=== PATIENT | female | born 1985 | race Caucasian/White ===

== ENCOUNTER 2017-03-23 17:53 | Observation (INO) ==
[2017-03-23 18:13] VITALS: TEMP 98.5
--- OUTSIDE RECORDS SUMMARY | 2017-03-23 18:25 | External Medical Summary | Referral Summary ---
:1985 [facility] Address [address] [place] [address] Care Team Providers Name Role Phone Melchor Ibarra Primary Care Physician Encounter VC Date(s): 03/14/15 - 03/14/15 [facility] MICHELLE Modi, [facility], OBGYN [address] [address] [place] Discharge Disposition: 01-Home or Self Care Attending Physician: Ilya Hurley MD Admitting Physician: Ilya Hurley MD Vital Signs Most recent to oldest [Reference Range]: 1 Blood Pressure [90-140/60-90 mmHg] 102/74 mmHg (03/14/15 9:36 AM) Problem List Condition Effective Dates Status Health Status Informant Tobacco user(Confirmed) Active patient Allergies, Adverse Reactions, Alerts No Known Allergies Medications Lipitor 10 mg oral tablet 10 mg 1 tabs, Oral, Daily, # 30 tabs, 4 Refill(s), Pharmacy: [facility], 1 tabs Oral Daily Start Date: 08/17/15 Status: OrderedOrtho Tri-Cyclen Lo oral tablet 1 tabs, Oral, Daily, # 28 tabs, 11 Refill(s), Pharmacy: [facility] Start Date: 03/14/15 Status: OrderedProbiotic Formula oral capsule 1 caps, Oral, Daily, 0 Refill(s) Start Date: 08/17/15 Status: OrderedRestora oral capsule See Instructions, 1 caps Oral Daily,Instr:DISPENSE, # 30 caps, eRx: [facility], 1 caps Oral Daily,Instr:DISPENSE Start Date: 08/20/15 Status: OrderedRestora oral capsule 1 caps, Oral, Daily, DISPENSE, # 30 caps, 0 Refill(s), Pharmacy: [facility] Start Date: 03/14/15 Status: Ordered Results No data available for this section Immunizations No data available for this section Procedures No data available for this section Social History Social History Type Response Smoking Status Current every day smoker; Type: Cigarettes; Tobacco use per day : 1 Pack; Number of years: 14 Assessment and Plan Extracted from: Title: Ambulatory Patient Education Author: Ilya Hurley MD Date: Family Medicine Preventive Care for Adults A healthy lifestyle and preventive care can promote health and wellness. Preventive health guidelines for women include the following mclean practices. A routine yearly physical is a good way to check with your health care provider about your health and preventive screening. It is a chance to share any concerns and updates on your health and to receive a thorough exam. Visit your dentist for a routine exam and preventive care every 6 months. [place] your teeth twice a day and floss once a day. Good oral hygiene prevents tooth decay and gum disease. The frequency of eye exams is based on your age, health, family medical history, use of contact lenses, and other factors. Follow your health care provider's recommendations for frequency of eye exams. Eat a healthy diet. Foods like vegetables, fruits, whole grains, low-fat dairy products, and lean protein foods contain the nutrients you need without too many calories. Decrease your intake of karlie ds high in solid fats, added sugars, and salt. Eat the right amount of calories for you.Get information about a proper diet from your health care provider, if necessary. Regular physical exercise is one of the most important things you can do for your health. Most adults should get at least 150 minutes of moderate- intensity exercise (any activity that increases you r heart rate and causes you to sweat) each week. In addition, most adults need muscle-strengthening exercises on 2 or more days a week. Maintain a healthy weight. The body mass index (BMI) is a screening tool to identify possible weight problems. It provides an estimate of body fat based on height and weight. Your health care provi dieter can find your BMI and can help you achieve or maintain a healthy weight. For adults 20 years and older: A BMI below 18.5 is considered underweight. A BMI of 18.5 to 24.9 is normal. A BMI of 25 to 29.9 is considered overweight. A BMI of 30 and above is considered obese. Maintain normal blood lipids and cholesterol levels by exercising and minimizing your intake of saturated fat. Eat a balanced diet with plenty of fruit and vegetables. Blood tests for lipids and ch olesterol should begin at age 20 and be repeated every 5 years. If your lipid or cholesterol levels are high, you are over 50, or you are at high risk for heart disease, you may need your cholesterol le vels checked more frequently.Ongoing high lipid and cholesterol levels should be treated with medicines if diet and exercise are not working. If you smoke, find out from your health care provider how to quit. If you do not use tobacco, do not start. Lung cancer screening is recommended for adults aged 5580 years who are at high risk for developing lung cancer because of a history of smoking. A yearly low-dose CT scan of the lungs is recomme nded for people who have at least a 05-lwoa-[id number] history of smoking and are a current smoker or have quit within the past 15 years. A pack year of smoking is smoking an average of 1 pack of cigarettes a day for 1 year (for example: 1 pack a day for 30 years or 2 packs a day for 15 years). Yearly screening should continue until the smoker has stopped smoking for at least 15 years. Yearly screening shou ld be stopped for people who develop a health problem that would prevent them from having lung cancer treatment. If you are , do not drink alcohol. If you are , be very cautious about drinking alcohol. If you are not and choose to drink alcohol, do not have more than 1 drink per day. One drink is considered to be 12 ounces (355 mL) of beer, 5 ounces (148 mL ) of wine, or 1.5 ounces (44 mL) of liquor. Avoid use of street drugs. Do not share needles with anyone. Ask for help if you need support or instructions about stopping the use of drugs. High blood pressure causes heart disease and increases the risk of stroke. Your blood pressure should be checked at least every 1 to 2 years. Ongoing high blood pressure should be treated with medicines if weight loss and exercise do not work. If you are 5579 years old, ask your health care provider if you should take aspirin to prevent strokes. Diabetes screening involves taking a blood sample to check your fasting blood sugar level. This should be done once every 3 years, after age 45, if you are within normal weight and without risk fac tors for diabetes. Testing should be considered at a younger age or be carried out more frequently if you are overweight and have at least 1 risk factor for diabetes. Breast cancer screening is essential preventive care for women. You should practice "breast self-awareness." This means understanding the normal appearance and feel of your breasts and may include breast self-examination. Any changes detected, no matter how small, should be reported to a health care provider. Women in their 20s and 30s should have a clinical breast exam (CBE) by a health care pro vider as part of a regular health exam every 1 to 3 years. After age 40, women should have a CBE every year. Starting at age 40, women should consider having a mammogram (breast X-ray test) every year. Women who have a family history of breast cancer should talk to their health care provider about genetic screening. Women at a high risk of breast cancer should talk to their health care providers about having an MRI and a mammogram every year. Breast cancer gene (BRCA)-related cancer risk assessment is recommended for women who have family members with BRCA-related cancers. BRCA-related cancers include breast, ovarian, tubal, and periton eal cancers. Having family members with these cancers may be associated with an increased risk for harmful changes (mutations) in the breast cancer genes BRCA1 and BRCA2. Results of the assessment will determine the need for genetic counseling and BRCA1 and BRCA2 testing. Routine pelvic exams to screen for cancer are no longer recommended for non women who are considered low risk for cancer of the pelvic organs ( ovaries, uterus, and vagina) and who do not ashton ve symptoms. Ask your health care provider if a screening pelvic exam is right for you. If you have had past treatment for cervical cancer or a condition that could lead to cancer, you need Pap tests and screening for cancer for at least 20 years after your treatment. If Pap tests hav e been discontinued, your risk factors (such as having a new sexual partner) need to be reassessed to determine if screening should be resumed. Some women have medical problems that increase the chance of getting cervical cancer. In these cases, your health care provider may recommend more frequent screening and Pap tests. The HPV test is an additional test that may be used for cervical cancer screening. The HPV test looks for the virus that can cause the cell changes on the cervix. The cells collected during the Pap test can be tested for HPV. The HPV test could be used to screen women aged 30 years and older, and should be used in women of any age who have unclear Pap test results. After the age of 30, women shou ld have HPV testing at the same frequency as a Pap test. Colorectal cancer can be detected and often prevented. Most routine colorectal cancer screening begins at the age of 50 years and continues through age 75 years. However, your health care provider may recommend screening at an earlier age if you have risk factors for colon cancer. On a yearly basis, your health care provider may provide home test kits to check for hidden blood in the stool. Use o f a small camera at the end of a tube, to directly examine the colon ( sigmoidoscopy or colonoscopy), can detect the earliest forms of colorectal cancer. Talk to your health care provider about this at a ge 50, when routine screening begins. Direct exam of the colon should be repeated every 510 years through age 75 years, unless early forms of pre- cancerous polyps or small growths are found. People who are at an increased risk for hepatitis B should be screened for this virus. You are considered at high risk for hepatitis B if: You were born in a country where hepatitis B occurs often. Talk with your health care provider about which countries are considered high risk. Your parents were born in a high-risk country and you have not received a shot to protect against hepatitis B (hepatitis B vaccine). You have HIV or AIDS. You use needles to inject street drugs. You live with, or have sex with, someone who has hepatitis B. You get hemodialysis treatment. You take certain medicines for conditions like cancer, organ transplantation, and autoimmune conditions. Hepatitis C blood testing is recommended for all people born from 1945 through 1965 and any individual with known risks for hepatitis C. Practice safe sex. Use condoms and avoid high-risk sexual practices to reduce the spread of sexually transmitted infections (STIs). STIs include gonorrhea, chlamydia, syphilis, trichomonas, herpes, HPV, and human immunodeficiency virus (HIV). Herpes, HIV, and HPV are viral illnesses that have no cure. They can result in disability, cancer, and . You should be screened for sexually transmitted illnesses (STIs) including gonorrhea and chlamydia if: You are sexually active and are younger than 24 years. You are older than 24 years and your health care provider tells you that you are at risk for this type of infection. Your sexual activity has changed since you were last screened and you are at an increased risk for chlamydia or gonorrhea. Ask your health care provider if you are at risk. If you are at risk of being infected with HIV, it is recommended that you take a prescription medicine daily to prevent HIV infection. This is called preexposure prophylaxis (PrEP). You are considered at risk if: You are a heterosexual woman, are sexually active, and are at increased risk for HIV infection. You take drugs by injection. You are sexually active with a partner who has HIV. Talk with your health care provider about whether you are at high risk of being infected with HIV. If you choose to begin PrEP, you should first be tested for HIV. You should then be tested every 3 months for as long as you are taking PrEP. Osteoporosis is a disease in which the bones lose minerals and strength with aging. This can result in serious bone fractures or breaks. The risk of osteoporosis can be identified using a bone dens ity scan. Women ages 65 years and over and women at risk for fractures or osteoporosis should discuss screening with their health care providers. Ask your health care provider whether you should take a calcium supplement or vitamin D to reduce the rate of osteoporosis. Menopause can be associated with physical symptoms and risks. Hormone replacement therapy is available to decrease symptoms and risks. You should talk to your health care provider about whether hormone replacement therapy is right for you. Use sunscreen. Apply sunscreen liberally and repeatedly throughout the day. You should seek shade when your shadow is shorter than you. Protect yourself by wearing long sleeves, pants, a wide-brimm ed hat, and sunglasses year round, whenever you are outdoors. Once a month, do a whole body skin exam, using a mirror to look at the skin on your back. Tell your health care provider of new moles, moles that have irregular borders, moles that are larger than a pencil eraser, or moles that have changed in shape or color. Stay current with required vaccines (immunizations). Influenza vaccine. All adults should be immunized every year. Tetanus, diphtheria, and acellular pertussis (Td, Tdap) vaccine. women should receive 1 dose of Tdap vaccine during each . The dose should be obtained regardless of the length of time since the last dose. Immunization is preferred during the [id number] week of gestation. An adult who has not previously received Tdap or who does not know her vaccine status should receive 1 dose of Tdap. This initial dose should be followed by tetanus and diphtheria toxoids (Td) booster doses every 10 years. Adults with an unknown or incomplete history of completing a 3-dose immunization series with Td-containing vaccines should begin or complete a primary immunization series including a Tdap dose. Adults should receive a Td booster every 10 years. Varicella vaccine. An adult without evidence of immunity to varicella should receive 2 doses or a second dose if she has previously received 1 dose. females who do not have evidence of imm unity should receive the first dose after . This first dose should be obtained before leaving the health care facility. The second dose should be obtained 48 weeks after the first dose. Human papillomavirus (HPV) vaccine. Females aged 1326 years who have not received the vaccine previously should obtain the 3-dose series. The vaccine is not recommended for use in femal es. However, testing is not needed before receiving a dose. If a female is found to be after receiving a dose, no treatment is needed. In that case, the remaining doses should be katina yed until after the . Immunization is recommended for any person with an immunocompromised condition through the age of 26 years if she did not get any or all doses earlier. During the 3-dose s eries, the second dose should be obtained 48 weeks after the first dose. The third dose should be obtained 24 weeks after the first dose and 16 weeks after the second dose. Zoster vaccine. One dose is recommended for adults aged 60 years or older unless certain conditions are present. Measles, mumps, and rubella (MMR) vaccine. Adults born before 1957 generally are considered immune to measles and mumps. Adults born in 1957 or later should have 1 or more doses of MMR vaccine unle ss there is a contraindication to the vaccine or there is laboratory evidence of immunity to each of the three diseases. A routine second dose of MMR vaccine should be obtained at least 28 days after th e first dose for students attending postsecondary schools, health care workers , or international travelers. People who received inactivated measles vaccine or an unknown type of measles vaccine during should receive 2 doses of MMR vaccine. People who received inactivated mumps vaccine or an unknown type of mumps vaccine before 1978 and are at high risk for mumps infection should consider i mmunization with 2 doses of MMR vaccine. For females of childbearing age, rubella immunity should be determined. If there is no evidence of immunity, females who are not should be vaccinated. I f there is no evidence of immunity, females who are should delay immunization until after . Unvaccinated health care workers born before 1957 who lack laboratory evidence of measles, m umps, or rubella immunity or laboratory confirmation of disease should consider measles and mumps immunization with 2 doses of MMR vaccine or rubella immunization with 1 dose of MMR vaccine. Pneumococcal 13-valent conjugate (PCV13) vaccine. When indicated, a person who is uncertain of her immunization history and has no record of immunization should receive the PCV13 vaccine. An adult aged 19 years or older who has certain medical conditions and has not been previously immunized should receive 1 dose of PCV13 vaccine. This PCV13 should be followed with a dose of pneumococcal polysacc haride (PPSV23) vaccine. The PPSV23 vaccine dose should be obtained at least 8 weeks after the dose of PCV13 vaccine. An adult aged 19 years or older who has certain medical conditions and previously re ceived 1 or more doses of PPSV23 vaccine should receive 1 dose of PCV13. The PCV13 vaccine dose should be obtained 1 or more years after the last PPSV23 vaccine dose. Pneumococcal polysaccharide (PPSV23) vaccine. When PCV13 is also indicated , PCV13 should be obtained first. All adults aged 65 years and older should be immunized. An adult younger than age 65 year s who has certain medical conditions should be immunized. Any person who resides in a correction or long-term care facility should be immunized. An adult smoker should be immunized. People with an imm unocompromised condition and certain other conditions should receive both PCV13 and PPSV23 vaccines. People with human immunodeficiency virus (HIV) infection should be immunized as soon as possible afte r diagnosis. Immunization during chemotherapy or radiation therapy should be avoided. Routine use of PPSV23 vaccine is not recommended for [place] Indians, [place] Natives, or people younger than 65 yea rs unless there are medical conditions that require PPSV23 vaccine. When indicated, people who have unknown immunization and have no record of immunization should receive PPSV23 vaccine. One-time revacc ination 5 years after the first dose of PPSV23 is recommended for people aged 1964 years who have chronic kidney failure, nephrotic syndrome, asplenia, or immunocompromised conditions. People who rec eived 12 doses of PPSV23 before age 65 years should receive another dose of PPSV23 vaccine at age 65 years or later if at least 5 years have passed since the previous dose. Doses of PPSV23 are not ne eded for people immunized with PPSV23 at or after age 65 years. Meningococcal vaccine. Adults with asplenia or persistent complement component deficiencies should receive 2 doses of quadrivalent meningococcal conjugate (MenACWY-D) vaccine. The doses should be o btained at least 2 months apart. Microbiologists working with certain meningococcal bacteria, recruits, people at risk during an outbreak, and people who travel to or live in countries with a h igh rate of meningitis should be immunized. A first-year college student up through age 21 years who is living in a residence conley should receive a dose if she did not receive a dose on or after her 16t h birthday. Adults who have certain high-risk conditions should receive one or more doses of vaccine. Hepatitis A vaccine. Adults who wish to be protected from this disease, have certain high-risk conditions, work with hepatitis A-infected animals, work in hepatitis A research labs, or travel to or work in countries with a high rate of hepatitis A should be immunized. Adults who were previously unvaccinated and who anticipate close contact with an international adoptee during the first [address] arrival in the [place] from a country with a high rate of hepatitis A should be immunized. Hepatitis B vaccine. Adults who wish to be protected from this disease, have certain high-risk conditions, may be exposed to blood or other infectious body fluids, are household contacts or sex par tners of hepatitis B positive people, are clients or workers in certain care facilities, or travel to or work in countries with a high rate of hepatitis B should be immunized. Haemophilus influenzae type b (Hib) vaccine. A previously unvaccinated person with asplenia or sickle cell disease or having a scheduled splenectomy should receive 1 dose of Hib vaccine. Regardless of previous immunization, a recipient of a hematopoietic stem cell transplant should receive a 3-dose series 612 months after her successful transplant. Hib vaccine is not recommended for adults with HIV infection. Preventive Services / Frequency Ages 19 to 39 years Blood pressure check. / Every 1 to 2 years. Lipid and cholesterol check. / Every 5 years beginning at age 20. Clinical breast exam. / Every 3 years for women in their 20s and 30s. BRCA-related cancer risk assessment. / For women who have family members with a BRCA-related cancer (breast, ovarian, tubal, or peritoneal cancers). Pap test. / Every 2 years from ages 21 through 29. Every 3 years starting at age 30 through age 65 or 70 with a history of 3 consecutive normal Pap tests. HPV screening. / Every 3 years from ages 30 through ages 65 to 70 with a history of 3 consecutive normal Pap tests. Hepatitis C blood test. / For any individual with known risks for hepatitis C. Skin self-exam. / Monthly. Influenza vaccine. / Every year. Tetanus, diphtheria, and acellular pertussis (Tdap, Td) vaccine. / Consult your health care provider. women should receive 1 dose of Tdap vaccine during each . 1 dose of Td every 10 years. Varicella vaccine. / Consult your health care provider. females who do not have evidence of immunity should receive the first dose after . HPV vaccine. / 3 doses over 6 months, if 26 and younger. The vaccine is not recommended for use in females. However, testing is not needed before receiving a dose. Measles, mumps, rubella (MMR) vaccine. / You need at least 1 dose of MMR if you were born in 1957 or later. You may also need a 2nd dose. For females of childbearing age, rubella immunity should be determined. If there is no evidence of immunity, females who are not should be vaccinated. If there is no evidence of immunity, females who are should delay immunization until after . Pneumococcal 13-valent conjugate (PCV13) vaccine. / Consult your health care provider. Pneumococcal polysaccharide (PPSV23) vaccine. / 1 to 2 doses if you smoke cigarettes or if you have certain conditions. Meningococcal vaccine. / 1 dose if you are age 19 to 21 years and a first-year college student living in a residence conley, or have one of several medical conditions, you need to get vaccinated ag ainst meningococcal disease. You may also need additional booster doses. Hepatitis A vaccine. / Consult your health care provider. Hepatitis B vaccine. / Consult your health care provider. Haemophilus influenzae type b (Hib) vaccine. / Consult your health care provider. Ages 40 to 64 years Blood pressure check. / Every 1 to 2 years. Lipid and cholesterol check. / Every 5 years beginning at age 20 years. Lung cancer screening. / Every year if you are aged 5580 years and have a [id number] history of smoking and currently smoke or have quit within the past 15 years. Yearly screening is stopped o nce you have quit smoking for at least 15 years or develop a health problem that would prevent you from having lung cancer treatment. Clinical breast exam. / Every year after age 40 years. BRCA-related cancer risk assessment. / For women who have family members with a BRCA-related cancer (breast, ovarian, tubal, or peritoneal cancers). Mammogram. / Every year beginning at age 40 years and continuing for as long as you are in good health. Consult with your health care provider. Pap test. / Every 3 years starting at age 30 years through age 65 or 70 years with a history of 3 consecutive normal Pap tests. HPV screening. / Every 3 years from ages 30 years through ages 65 to 70 years with a history of 3 consecutive normal Pap tests. Fecal occult blood test (FOBT) of stool. / Every year beginning at age 50 years and continuing until age 75 years. You may not need to do this test if you get a colonoscopy every 10 years. Flexible sigmoidoscopy or colonoscopy. / Every 5 years for a flexible sigmoidoscopy or every 10 years for a colonoscopy beginning at age 50 years and continuing until age 75 years. Hepatitis C blood test. / For all people born from 1945 through 1965 and any individual with known risks for hepatitis C. Skin self-exam. / Monthly. Influenza vaccine. / Every year. Tetanus, diphtheria, and acellular pertussis (Tdap/Td) vaccine. / Consult your health care provider. women should receive 1 dose of Tdap vaccine during each . 1 dose of Td every 10 years. Varicella vaccine. / Consult your health care provider. females who do not have evidence of immunity should receive the first dose after . Zoster vaccine. / 1 dose for adults aged 60 years or older. Measles, mumps, rubella (MMR) vaccine. / You need at least 1 dose of MMR if you were born in 1957 or later. You may also need a 2nd dose. For females of childbearing age, rubella immunity should be determined. If there is no evidence of immunity, females who are not should be vaccinated. If there is no evidence of immunity, females who are should delay immunization until after . Pneumococcal 13-valent conjugate (PCV13) vaccine. / Consult your health care provider. Pneumococcal polysaccharide (PPSV23) vaccine. / 1 to 2 doses if you smoke cigarettes or if you have certain conditions. Meningococcal vaccine. / Consult your health care provider. Hepatitis A vaccine. / Consult your health care provider. Hepatitis B vaccine. / Consult your health care provider. Haemophilus influenzae type b (Hib) vaccine. / Consult your health care provider. Ages 65 years and over Blood pressure check. / Every 1 to 2 years. Lipid and cholesterol check. / Every 5 years beginning at age 20 years. Lung cancer screening. / Every year if you are aged 5580 years and have a 57-ifye-gyjj history of smoking and currently smoke or have quit within the past 15 years. Yearly screening is stopped o nce you have quit smoking for at least 15 years or develop a health problem that would prevent you from having lung cancer treatment. Clinical breast exam. / Every year after age 40 years. BRCA-related cancer risk assessment. / For women who have family members with a BRCA-related cancer (breast, ovarian, tubal, or peritoneal cancers). Mammogram. / Every year beginning at age 40 years and continuing for as long as you are in good health. Consult with your health care provider. Pap test. / Every 3 years starting at age 30 years through age 65 or 70 years with 3 consecutive normal Pap tests. Testing can be stopped between 65 and 70 years with 3 consecutive normal Pap federico ts and no abnormal Pap or HPV tests in the past 10 years. HPV screening. / Every 3 years from ages 30 years through ages 65 or 70 years with a history of 3 consecutive normal Pap tests. Testing can be stopped between 65 and 70 years with 3 consecutive n ormal Pap tests and no abnormal Pap or HPV tests in the past 10 years. Fecal occult blood test (FOBT) of stool. / Every year beginning at age 50 years and continuing until age 75 years. You may not need to do this test if you get a colonoscopy every 10 years. Flexible sigmoidoscopy or colonoscopy. / Every 5 years for a flexible sigmoidoscopy or every 10 years for a colonoscopy beginning at age 50 years and continuing until age 75 years. Hepatitis C blood test. / For all people born from 1945 through 1965 and any individual with known risks for hepatitis C. Osteoporosis screening. / A one-time screening for women ages 65 years and over and women at risk for fractures or osteoporosis. Skin self-exam. / Monthly. Influenza vaccine. / Every year. Tetanus, diphtheria, and acellular pertussis (Tdap/Td) vaccine. / 1 dose of Td every 10 years. Varicella vaccine. / Consult your health care provider. Zoster vaccine. / 1 dose for adults aged 60 years or older. Pneumococcal 13-valent conjugate (PCV13) vaccine. / Consult your health care provider. Pneumococcal polysaccharide (PPSV23) vaccine. / 1 dose for all adults aged 65 years and older. Meningococcal vaccine. / Consult your health care provider. Hepatitis A vaccine. / Consult your health care provider. Hepatitis B vaccine. / Consult your health care provider. Haemophilus influenzae type b (Hib) vaccine. / Consult your health care provider. Family history and personal history of risk and conditions may change your health care provider's recommendations. Document Released: 07/21/2002 Document Revised: 10/09/2014 Document Reviewed: 10/20/2011 [facility] Patient Information 2015 [facility]. This information is not intended to replace advice given to you by your health care provider. Make sure you discuss any questions you have with your health care provider. No follow up information was provided. Extracted from: Title: Well Woman Exam - with pap Author: Ilya Hurley MD Date: 03/14/15 Impression and Plan Diagnosis Plan: pap obtained. Will refill orthotricyclen lo. Discussed r/b/a of ocp's and also discussed stopping them if patient smoking at age 34. Recommend daily exercise and folic acid. Will also check T SH. Recommend daily probiotic for recurrent BV. f/u 1 year or prn. Patient Instructions: Counseled: Patient. .
--- OUTSIDE RECORDS SUMMARY | 2017-03-23 18:25 | External Medical Summary | Referral Summary ---
:1985 Author Organization [facility], [facility] Address [address] [place] [address] Care Team Providers Name Role Phone Ricardo Ibarrais Carlos Primary Care Physician Encounter VC Date(s): 03/14/15 - 03/14/15 [facility], [facility], OBGYN [address] [phone] [place] Discharge Disposition: 01-Home or Self Care Attending Physician: Ilya Hurley MD Admitting Physician: Ilya Hurley MD Vital Signs Most recent to oldest [Reference Range]: 1 Blood Pressure [90-140/60-90 mmHg] 102/74 mmHg (03/14/15 9:36 AM) Problem List Condition Effective Dates Status Health Status Informant Tobacco user(Confirmed) Active patient Allergies, Adverse Reactions, Alerts No Known Allergies Medications Ortho Tri-Cyclen Lo oral tablet 1 tabs, Oral, Daily, # 28 tabs, 11 Refill(s), Pharmacy: [facility] Start Date: 03/14/15 Status: OrderedRestora oral capsule 1 caps, Oral, Daily, DISPENSE, # 30 caps, 0 Refill(s), Pharmacy: [facility] Start Date: 03/14/15 Status: Ordered Results [...] exam and preventive care every 6 months. [place] your teeth twice a day and floss [...] for people who have at least a 73-grlq-mweb history of smoking and are a current [...] last dose. Immunization is preferred during the 96co98ff week of gestation. An adult who has [...] immunized. Any person who resides in a skilled nursing or long-term care facility should be immunized. [...] of PPSV23 vaccine is not recommended for [place] Indians, [place] Natives, or people younger than [...] are aged 5580 years and have a 05-ongi-cjjc history of smoking and currently smoke or [...] are aged 5580 years and have a 78-ryer-mdyb history of smoking and currently smoke or [...] 07/21/2002 Document Revised: 10/09/2014 Document Reviewed: 10/20/2011 [facility] Patient Information 2015 [facility] [employer]. This information is not intended to replace [...]
--- OUTSIDE RECORDS SUMMARY | 2017-03-23 18:25 | External Medical Summary | Referral Summary ---
:1985 Author Organization [facility] Medicine Address [id number] [place] [id number] Care Team Providers Name Role Phone Melchor Ibarra Primary Care Physician Encounter VC Date(s): 08/17/15 - 08/17/15 [facility] Bui [address] [place] [phone] [place] Discharge Diagnosis: Common migraine Discharge Diagnosis: Mixed hyperlipidemia Discharge Diagnosis: Fatigue Discharge Disposition: 01-Home or Self Care Attending Physician: Melchor Ibarra DO Admitting Physician: Melchor Ibarra DO Referring Physician: Melchor Ibarra DO Vital Signs Most recent to oldest [Reference Range]: 1 Peripheral Pulse Rate [60-100 bpm] 100 bpm (08/17/15 10:38 AM) Blood Pressure [90-140/60-90 mmHg] 108/66 mmHg (08/17/15 10:38 AM) SpO2 99 % (08/17/15 10:38 AM) Problem List Condition Effective Dates Status Health Status Informant Tobacco user(Confirmed) Active patient Allergies, Adverse Reactions, Alerts No Known Allergies Medications Lipitor 10 mg oral tablet 10 mg 1 tabs, Oral, Daily, # 30 tabs, 4 Refill(s), Pharmacy: [facility], 1 tabs Oral Daily Start Date: 08/17/15 Status: OrderedOrtho Tri-Cyclen Lo oral tablet 1 tabs, Oral, Daily, # 28 tabs, 11 Refill(s), Pharmacy: [facility] Start Date: 03/14/15 Status: OrderedProbiotic Formula oral capsule 1 caps, Oral, Daily, 0 Refill(s) Start Date: 08/17/15 Status: OrderedRestora oral capsule 1 caps, Oral, [...] Extracted from: Title: Ambulatory Patient Education Author: Melchor Ibarra DO Date: 08/17/15 Emergency Medicine Migraine Headache A migraine headache is an intense, throbbing pain on one or both sides of your head. A migraine can last for 30 minutes to several hours. CAUSES The exact cause of a migraine headache is not always known. However, a migraine may be caused when nerves in the brain become irritated and release chemicals that cause inflammation. This causes pain. Certain things may also trigger migraines, such as: Alcohol. Smoking. Stress. Menstruation. Aged cheeses. Foods or drinks that contain nitrates, glutamate, aspartame, or tyramine. Lack of sleep. Chocolate. Caffeine. Hunger. Physical exertion. Fatigue. Medicines used to treat chest pain (nitroglycerine), control pills , estrogen, and some blood pressure medicines. SIGNS AND SYMPTOMS Pain on one or both sides of your head. Pulsating or throbbing pain. Severe pain that prevents daily activities. Pain that is aggravated by any physical activity. Nausea, vomiting, or both. Dizziness. Pain with exposure to bright lights, loud noises, or activity. General sensitivity to bright lights, loud noises, or smells. Before you get a migraine, you may get warning signs that a migraine is coming (aura). An aura may include: Seeing flashing lights. Seeing bright spots, halos, or zigzag lines. Having tunnel vision or blurred vision. Having feelings of numbness or tingling. Having trouble talking. Having muscle weakness. DIAGNOSIS A migraine headache is often diagnosed based on: Symptoms. Physical exam. A CT scan or MRI of your head. These imaging tests cannot diagnose migraines, but they can help rule out other causes of headaches. TREATMENT Medicines may be given for pain and nausea. Medicines can also be given to help prevent recurrent migraines. HOME CARE INSTRUCTIONS Only take mrhx-sdb-pktquig or prescription medicines for pain or discomfort as directed by your health care provider. The use of long-term narcotics is not recommended. Lie down in a dark, quiet room when you have a migraine. Keep a journal to find out what may trigger your migraine headaches. For example, write down: What you eat and drink. How much sleep you get. Any change to your diet or medicines. Limit alcohol consumption. Quit smoking if you smoke. Get 79 hours of sleep, or as recommended by your health care provider. Limit stress. Keep lights dim if bright lights bother you and make your migraines worse. SEEK IMMEDIATE MEDICAL CARE IF: Your migraine becomes severe. You have a fever. You have a stiff neck. You have vision loss. You have muscular weakness or loss of muscle control. You start losing your balance or have trouble walking. You feel faint or pass out. You have severe symptoms that are different from your first symptoms. MAKE SURE YOU: Understand these instructions. Will watch your condition. Will get help right away if you are not doing well or get worse. This information is not intended to replace advice given to you by your health care provider. Make sure you discuss any questions you have with your health care provider. Document Released: 05/25/2006 Document Revised: 10/09/2014 Document Reviewed: 01/30/2014 [facility] Patient Information 2015 [place]. Follow Up With: Where: When: Melchor Ibarra [address]; [place], [place] [id number] Business (1) Comments: For follow-up of:MRI, schedule with number pt to see Podiatry, call number starting Lipitor daily watch low fat diet pt to start Imitrex as directed at onset of headache Follow up with Dr Hurley Extracted from: Title: Migraine Author: Melchor Ibarra DO Date: 08/17/15 Impression and Plan Diagnosis Common migraine ([id number] G43.009, Discharge, Medical). Fatigue ([id number]-NG R53.83, Discharge, Medical). Mixed hyperlipidemia (QAM46-LI E78.2, Discharge, Medical). Course: Worsening. Plan: Procedure: MRI. Patient Instructions: Migraine Headache, Melchor Ibarra For follow-up of:MRI, schedule with number pt to see Podiatry, call number starting Lipitor daily watch low fat diet pt to start Imitrex as directed at onset of headache Follow up with Dr Hurley. Orders Orders (Selected) Outpatient Orders Future (On Hold) MRI Brain w/o Contrast: Prescriptions Prescribed Lipitor 10 mg oral tablet: 10 mg=1 tabs, Oral, Daily, 30 tabs, 4 Refill(s).
--- OUTSIDE RECORDS SUMMARY | 2017-03-23 18:25 | External Medical Summary | Continuity of Care Document ---
:1985 Author Organization [facility] Allergies Medications Problems Date Dx Attending Type Code Diagnosis Diagnosed By Coded 06/08/2013 Mavis LACEY, Final 305.1 TOBACCO USE Jasper S DISORDER 06/08/2013 Mavis LACEY, Admitting 346.90 MIGRAINE NOS W/O SM Jasper S 10/11/2016 F F32.9 Major depressive Todd, disorder, single Bria A episode, unspecified 10/11/2016 F F41.9 Anxiety disorder, Todd, unspecified Bria A 10/13/2016 F F32.9 Major depressive Hui, disorder, single Rebekah D episode, unspecified 10/13/2016 F F41.9 Anxiety disorder, Hui, unspecified Rebekah D 10/15/2016 F F12.10 Cannabis abuse, Ch, uncomplicated ShiMetria 10/15/2016 F 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, abuse, ShiMetria uncomplicated 10/15/2016 F 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 Visit Discharge Status Pt. Type Provider Facility Loc./Unit Complaint Date/Time [id number] 06/08/2013 06/08/2013 DIS Emergency Mavis [facility] 6 13:42:00 16:00:00 , [facility] [employer] [id number] 10/15/2016 10/15/2016 CLS Unknown 10:30:00 23:59:59
--- NOTE | 2017-03-23 18:27 | Emergency Department Report ---
General Adult HPI - General Chief complaint: Psychiatric Symptoms <Ed Clancy - 03/24/17 09:01> Stated complaint: Clearance for [place] <Lidia Clancyn Kelsea - 03/24/17 09:01 > Time Seen by Provider: 03/23/17 18:09 <Lidia Clancyn Kelsea - 03/24/17 09:01> Source: patient <Joe Tesfaye [facility] 03/23/17 18:30> Mode of arrival: ambulatory <BrienJoe [facility] 03/23/17 18:30> Limitations: no limitations <BrienJoe Ab Fagan 03/23/17 18:30> - History of Present Illness HPI narrative: 31-year-old female presents to the emergency department with a chief complaint of anxiety. Patient denies any pain or discomfort. Patient denies homicidal/suicidal ideation or plan. She denies self injury or self- harm. Patient states that she has a history of anxiety dating back started 2016 and has been seen at [facility] for her anxiety. No other complaints or associated symptoms. She has been tried on several different medications without improvement of symptoms in the recent past. She was at home when her symptoms began. Symptoms have been persistent in nature since onset. She has been seen and evaluated by [facility] in the past. <TesfayeJoe Berger - 03/23/17 23:16> - Related Data Allergies Allergy/AdvReac Type Severity Reaction Status Date / Time No Known Allergies Allergy Verified 03/23/17 18:15 <Ed Clancy - 03/24/17 09:01> Review of Systems Constitutional: Denies: fever, chills <Joe Tesfaye 03/23/17 18:32> Eyes: Denies: eye pain, vision change <Joe Tesfaye 03/23/17 18:32> ENT: Denies: ear pain, throat pain <Joe Tesfaye 03/23/17 18:32> Cardiovascular: Denies: chest pain, palpitations <Joe Tesfaye 03/23/17 18: 32> Respiratory: Denies: cough, dyspnea <Joe Tesfaye 03/23/17 18:32> Gastrointestinal: Denies: abdominal pain, nausea, vomiting, diarrhea <Joe Tesfaye 03/23/17 18:32> Genitourinary: Denies: urgency, dysuria <Joe Tesfaye Ab 03/23/17 18:32> Musculoskeletal: Denies: back pain, arthralgia <Joe Tesfaye 03/23/17 18:32 > Integumentary: Denies: erythema, rash <Joe Tesfaye 03/23/17 18:32> Neurological: Denies: headache, numbness <Joe Tesfaye 03/23/17 18:32> Psychiatric: Reports: anxiety. Denies: depression, suicidal thoughts, homicidal thoughts <Joe Tesfaye 03/23/17 18:32> Endocrine: Denies: fatigue, heat or cold intolerance <Joe Tesfaye 18:32> Hematological/Lymphatic: Denies: easy bleeding, easy bruising <Joe Tesafye 03/23/17 18:32> Allergic/Immunologic: Denies: facial swelling, urticaria <Joe Tesfaye 18:32> [facility] Patient Stated Medical History Migraine Yes Asthma Yes Depression Yes Substance Use Disorder Yes: Recent Meth use <Ed Clancy 03/24/17 09:01> Patient Stated Medical History Migraine Yes Asthma Yes Depression Yes Substance Use Disorder Yes: Recent Meth use Anxiety, Depression <Joe Tesfaye 03/23/17 18:32> Surgical History: Negative. <Joe Tesfaye 03/23/17 18:32> Family History: Reviewed and Non-contributory. <Joe Tesfaye 03/23/17 18:32> - Social History Smoking status: Current every day smoker <Joe Tesfaye 03/23/17 18:32> Substance use type: methamphetamine <Joe Tesfaye 03/23/17 18:32> Alcohol intake frequency: a few times a month <Joe Tesfaye 03/23/17 18:32> Physical Exam - Limitations Limitations: no limitations <Joe Tesfaye 03/23/17 18:32> - General General appearance: alert, in no apparent distress <Joe Tesfaye 03/23/17 18:32> - Normal Exams: Head:: Normocephalic without trauma <Joe Tesfaye 03/23/17 18:32> Eyes:: Pupils are PERRLA w/ EOMI, No scleral icterus, irritation, or foreign bodies noted <Joe Tesfaye [facility] 03/23/17 18:32> ENMT:: No facial trauma, nasal exudates, pharyngeal erythema, or exudates are noted <Joe Tesfaye [facility] 03/23/17 18:32> Dental: No fractured, loose, or missing teeth noted <Joe Tesfaye [facility] 03/23/17 18:32> Neck:: Full range of motion, without adenopathy, JVD, bruits or thyromegaly < Joe Tesfaye [facility] 03/23/17 18:32> Chest/Respirations:: Clear all melo, with good airflow, and symmetry bilaterally <Joe Tesfaye [facility] 03/23/17 18:32> Cardiovascular:: Regular rate and rhythm, without murmur or gallop, Pulses 2+ all extremities, capillary refill, <2 seconds all extremities <Joe Tesfaye [facility] 03/23/17 18:32> Abdomen:: Bowel sounds positive, soft, non-tender, non-distended, no hepatosplenomegaly, masses or bruits noted <Joe Tesfaye [facility] 03/23/17 18:32> Lymphatic:: No lymphadenopathy, or lymphedema noted <Joe Tesfaye [facility] 03/23/17 18:32> Musculoskeletal:: No tenderness, or deformity noted, good range of motion, all extremities <Joe Tesfaye [facility] 03/23/17 18:32> Integumentary:: No rashes, hives, or bruising noted, hair and nails, without abnormality <Joe Tesfaye [facility] 03/23/17 18:32> Neurological:: Patient is alert, and oriented, cranial nerves, motor/sensory/ cerebellar, exams w/o gross deficits, to observation <Joe Tesfaye [facility] 18:32> Psychiatric:: Patient exhibits, appropriate attention, emotion and affect < Joe Tesfaye 03/23/17 18:32> Course Vital Signs Temperature 98.5 F 03/23/17 17:53 Pulse Rate 110 H 03/23/17 17:53 Blood Pressure 160/95 H 03/23/17 17:53 Pulse Oximetry 99 03/23/17 17:53 Temperature 98.5 F 03/23/17 17:53 Pulse Rate 65 10/17/17 07:30 Respiratory Rate 17 03/24/17 07:30 Blood Pressure 95/56 03/24/17 07:30 Pulse Oximetry 97 03/24/17 07:30 <Ed Clancy Q - 03/24/17 09:01> Medical Decision Making - MDM Narrative Medical decision making narrative: Patient has been accepted [facility], she is #6 on the wait list. Discussed case with Dr. Paulson she will admit observation status to the CCU <Ed Clancy Q - 03/24/17 09:01> Shortly into her stay in the emergency department, the patient becomes abrasive and argumentative. Patient is noted on several occasions to be swearing at staff members. A guest who has accompanied the patient to the hospital does reveal that the patient did mix some rat poison into a burrito yesterday afternoon and consumed the burrito. Patient does admit to be suicidal at this time. Patient refused IV start/IV hydration. She refused EKG. Patient is voluntary at this time. Cyrus from [place] comes to screen the patient at this time. [facility] screen is performed and patient is accepted to [facility]. Patient care is turned over to Dr. Ed Clancy at 0600. <Joe Tesfaye - 03/24/17 05:56> - Lab Data Result diagrams: 03/23/17 18:28 03/23/17 18:28 <Ed Clancy Q - 03/24/17 09:01> Lab Results 03/23/17 03/23/17 03/23/17 Range/Units 18:28 18:28 18:28 WBC 7.3 (4.5-11.0) T/MM3 RBC 4.91 (4.00-5.20) M/MM3 Hgb 14.4 (12-16) GM/DL Hct 43.1 (36-46) % MCV 87.8 (80-100) UM3 MCH 29.3 (26-34) UUG MCHC 33.4 (31-37) GM/DL RDW Std Deviation 41.1 (36.9-50.2) FL Plt Count 330 (130-400) T/MM3 MPV 9.2 L (9.4-12.4) UM3 Immature Gran % (Auto) 0.1 (0.0-0.5) % Neut % (Auto) 50.5 (33-66) % Lymph % (Auto) 40.6 (23-45) % [place] % (Auto) 7.2 (0-9.0) % Eos % (Auto) 1.2 (0-4) % Baso % (Auto) 0.4 (0-2) % Neut # (Auto) 3.7 (1.8-7.7) T/MM3 Lymph # (Auto) 3.0 (1-4.8) T/MM3 [place] # (Auto) 0.5 (0-0.8) T/MM3 Eos # (Auto) 0.1 (0-0.5) T/MM3 Baso # (Auto) 0.0 (0-0.2) T/MM3 Abs Immat Gran (auto) 0.01 (0.00-0.03) T/MM3 INR (0.99-1.21) APTT (24-36) SEC Turbidity < 20 (0-20) Sodium 145 H (134-144) MEQ/L Potassium 3.8 (3.6-5) MEQ/L Chloride 106 (98-107) MEQ/L Carbon Dioxide 26 (22-30) MEQ/L Anion Gap 13 (5-15) MEQ/L BUN 8.0 (7-17) MG/DL Creatinine 0.8 (0.7-1.2) MG/DL GFR Calculation 83 BUN/Creatinine Ratio 10 (6-26) RATIO Glucose 84 (65-110) MG/DL Calculated Osmolality 276 (261-280) MOSM/KG Calcium 9.7 (8.4-10.2) MG/DL Total Bilirubin 0.40 (0.20-1.30) MG/DL Icterus Index < 2 (0-7) AST 18 (14-36) U/L ALT 35 (9-52) U/L Alkaline Phosphatase 92 (38-126) U/L Total Protein 8.0 (6.3-8.2) G/DL Albumin 4.8 (3.5-5.0) G/DL Globulin 3.2 (2.4-3.6) G/DL Albumin/Globulin Ratio 1.5 (1.1-2.2) RATIO TSH 1.12 (0.47-4.68) MIU/L Specimen Hemolysis < 15 (0-25) Ur Collection Type Urine Color (YELLOW) Urine Clarity Urine pH (5.0-8.0) Ur Specific [place] (1.015-1.025) Urine Protein (NEGATIVE) Urine Glucose (UA) (NEGATIVE) Urine Ketones (NEGATIVE) Urine Occult Blood (NEGATIVE) Urine Nitrate (NEGATIVE) Urine Bilirubin (NEGATIVE) Urine Urobilinogen (NORMAL) EU/DL Ur Leukocyte Esterase (NEGATIVE) Urinalysis Comment Urine Test (Negative) Salicylates < 1.0 L (2-20) MG/DL Urine Opiates Screen ng/mL Ur Oxycodone Screen ng/mL Urine Methadone Screen ng/mL Ur Propoxyphene Screen ng/mL Acetaminophen < 10 L (10-30) UG/ML Ur Barbiturates Screen ng/mL U Tricyclic Antidepress ng/mL Ur Phencyclidine Scrn ng/mL Ur Amphetamines Screen ng/mL U Methamphetamines Scrn ng/mL U Benzodiazepines Scrn ng/mL Urine Cocaine Screen ng/mL U Cannabinoids Screen ng/mL Ur Drug Screen Confirm Alcohol, Quantitative <10 (<10) MG/DL 03/23/17 03/23/17 03/23/17 Range/Units 18:28 18:37 18:37 WBC (4.5-11.0) T/MM3 RBC (4.00-5.20) M/MM3 Hgb (12-16) GM/DL Hct (36-46) % MCV (80-100) UM3 MCH (26-34) UUG MCHC (31-37) GM/DL RDW Std Deviation (36.9-50.2) FL Plt Count (130-400) T/MM3 MPV (9.4-12.4) UM3 Immature Gran % (Auto) (0.0-0.5) % Neut % (Auto) (33-66) % Lymph % (Auto) (23-45) % [place] % (Auto) (0-9.0) % Eos % (Auto) (0-4) % Baso % (Auto) (0-2) % Neut # (Auto) (1.8-7.7) T/MM3 Lymph # (Auto) (1-4.8) T/MM3 [place] # (Auto) (0-0.8) T/MM3 Eos # (Auto) (0-0.5) T/MM3 Baso # (Auto) (0-0.2) T/MM3 Abs Immat Gran (auto) (0.00-0.03) T/MM3 INR 0.98 L (0.99-1.21) APTT 29.1 (24-36) SEC Turbidity (0-20) Sodium (134-144) MEQ/L Potassium (3.6-5) MEQ/L Chloride (98-107) MEQ/L Carbon Dioxide (22-30) MEQ/L Anion Gap (5-15) MEQ/L BUN (7-17) MG/DL Creatinine (0.7-1.2) MG/DL GFR Calculation BUN/Creatinine Ratio (6-26) RATIO Glucose (65-110) MG/DL Calculated Osmolality (261-280) MOSM/KG Calcium (8.4-10.2) MG/DL Total Bilirubin (0.20-1.30) MG/DL Icterus Index (0-7) AST (14-36) U/L ALT (9-52) U/L Alkaline Phosphatase (38-126) U/L Total Protein (6.3-8.2) G/DL Albumin (3.5-5.0) G/DL Globulin (2.4-3.6) G/DL Albumin/Globulin Ratio (1.1-2.2) RATIO TSH (0.47-4.68) MIU/L Specimen Hemolysis (0-25) Ur Collection Type Urine, clean catch Urine Color Yellow (YELLOW) Urine Clarity Clear Urine pH 6.0 (5.0-8.0) Ur Specific [place] 1.015 (1.015-1.025) Urine Protein Negative (NEGATIVE) Urine Glucose (UA) Negative (NEGATIVE) Urine Ketones Trace A (NEGATIVE) Urine Occult Blood Negative (NEGATIVE) Urine Nitrate Negative (NEGATIVE) Urine Bilirubin Negative (NEGATIVE) Urine Urobilinogen 0.2 (NORMAL) EU/DL Ur Leukocyte Esterase Negative (NEGATIVE) Urinalysis Comment Microscopic not ind. Urine Test Negative (Negative) Salicylates (2-20) MG/DL Urine Opiates Screen ng/mL Ur Oxycodone Screen ng/mL Urine Methadone Screen ng/mL Ur Propoxyphene Screen ng/mL Acetaminophen (10-30) UG/ML Ur Barbiturates Screen ng/mL U Tricyclic Antidepress ng/mL Ur Phencyclidine Scrn ng/mL Ur Amphetamines Screen ng/mL U Methamphetamines Scrn ng/mL U Benzodiazepines Scrn ng/mL Urine Cocaine Screen ng/mL U Cannabinoids Screen ng/mL Ur Drug Screen Confirm Alcohol, Quantitative (<10) MG/DL 03/23/17 03/23/17 Range/Units 18:37 18:37 WBC (4.5-11.0) T/MM3 RBC (4.00-5.20) M/MM3 Hgb (12-16) GM/DL Hct (36-46) % MCV (80-100) UM3 MCH (26-34) UUG MCHC (31-37) GM/DL RDW Std Deviation (36.9-50.2) FL Plt Count (130-400) T/MM3 MPV (9.4-12.4) UM3 Immature Gran % (Auto) (0.0-0.5) % Neut % (Auto) (33-66) % Lymph % (Auto) (23-45) % [place] % (Auto) (0-9.0) % Eos % (Auto) (0-4) % Baso % (Auto) (0-2) % Neut # (Auto) (1.8-7.7) T/MM3 Lymph # (Auto) (1-4.8) T/MM3 [place] # (Auto) (0-0.8) T/MM3 Eos # (Auto) (0-0.5) T/MM3 Baso # (Auto) (0-0.2) T/MM3 Abs Immat Gran (auto) (0.00-0.03) T/MM3 INR (0.99-1.21) APTT (24-36) SEC Turbidity (0-20) Sodium (134-144) MEQ/L Potassium (3.6-5) MEQ/L Chloride (98-107) MEQ/L Carbon Dioxide (22-30) MEQ/L Anion Gap (5-15) MEQ/L BUN (7-17) MG/DL Creatinine (0.7-1.2) MG/DL GFR Calculation BUN/Creatinine Ratio (6-26) RATIO Glucose (65-110) MG/DL Calculated Osmolality (261-280) MOSM/KG Calcium (8.4-10.2) MG/DL Total Bilirubin (0.20-1.30) MG/DL Icterus Index (0-7) AST (14-36) U/L ALT (9-52) U/L Alkaline Phosphatase (38-126) U/L Total Protein (6.3-8.2) G/DL Albumin (3.5-5.0) G/DL Globulin (2.4-3.6) G/DL Albumin/Globulin Ratio (1.1-2.2) RATIO TSH (0.47-4.68) MIU/L Specimen Hemolysis (0-25) Ur Collection Type Urine Color (YELLOW) Urine Clarity Urine pH (5.0-8.0) Ur Specific [place] (1.015-1.025) Urine Protein (NEGATIVE) Urine Glucose (UA) (NEGATIVE) Urine Ketones (NEGATIVE) Urine Occult Blood (NEGATIVE) Urine Nitrate (NEGATIVE) Urine Bilirubin (NEGATIVE) Urine Urobilinogen (NORMAL) EU/DL Ur Leukocyte Esterase (NEGATIVE) Urinalysis Comment Urine Test (Negative) Salicylates (2-20) MG/DL Urine Opiates Screen Negative ng/mL Ur Oxycodone Screen Negative ng/mL Urine Methadone Screen Negative ng/mL Ur Propoxyphene Screen Negative ng/mL Acetaminophen (10-30) UG/ML Ur Barbiturates Screen Negative ng/mL U Tricyclic Antidepress Negative ng/mL Ur Phencyclidine Scrn Negative ng/mL Ur Amphetamines Screen Positive ng/mL U Methamphetamines Scrn Positive ng/mL U Benzodiazepines Scrn Negative ng/mL Urine Cocaine Screen Negative ng/mL U Cannabinoids Screen Negative ng/mL Ur Drug Screen Confirm Sent out Alcohol, Quantitative (<10) MG/DL <Ed Clancy Q - 03/24/17 09:01> Lab Results 03/23/17 03/23/17 03/23/17 Range/Units 18:28 18:28 18:28 WBC 7.3 (4.5-11.0) T/MM3 RBC 4.91 (4.00-5.20) M/MM3 Hgb 14.4 (12-16) GM/DL Hct 43.1 (36-46) % MCV 87.8 (80-100) UM3 MCH 29.3 (26-34) UUG MCHC 33.4 (31-37) GM/DL RDW Std Deviation 41.1 (36.9-50.2) FL Plt Count 330 (130-400) T/MM3 MPV 9.2 L (9.4-12.4) UM3 Immature Gran % (Auto) 0.1 (0.0-0.5) % Neut % (Auto) 50.5 (33-66) % Lymph % (Auto) 40.6 (23-45) % [place] % (Auto) 7.2 (0-9.0) % Eos % (Auto) 1.2 (0-4) % Baso % (Auto) 0.4 (0-2) % Neut # (Auto) 3.7 (1.8-7.7) T/MM3 Lymph # (Auto) 3.0 (1-4.8) T/MM3 [place] # (Auto) 0.5 (0-0.8) T/MM3 Eos # (Auto) 0.1 (0-0.5) T/MM3 Baso # (Auto) 0.0 (0-0.2) T/MM3 Abs Immat Gran (auto) 0.01 (0.00-0.03) T/MM3 INR (0.99-1.21) APTT (24-36) SEC Turbidity < 20 (0-20) Sodium 145 H (134-144) MEQ/L Potassium 3.8 (3.6-5) MEQ/L Chloride 106 (98-107) MEQ/L Carbon Dioxide 26 (22-30) MEQ/L Anion Gap 13 (5-15) MEQ/L BUN 8.0 (7-17) MG/DL Creatinine 0.8 (0.7-1.2) MG/DL GFR Calculation 83 BUN/Creatinine Ratio 10 (6-26) RATIO Glucose 84 (65-110) MG/DL Calculated Osmolality 276 (261-280) MOSM/KG Calcium 9.7 (8.4-10.2) MG/DL Total Bilirubin 0.40 (0.20-1.30) MG/DL Icterus Index < 2 (0-7) AST 18 (14-36) U/L ALT 35 (9-52) U/L Alkaline Phosphatase 92 (38-126) U/L Total Protein 8.0 (6.3-8.2) G/DL Albumin 4.8 (3.5-5.0) G/DL Globulin 3.2 (2.4-3.6) G/DL Albumin/Globulin Ratio 1.5 (1.1-2.2) RATIO TSH 1.12 (0.47-4.68) MIU/L Specimen Hemolysis < 15 (0-25) Ur Collection Type Urine Color (YELLOW) Urine Clarity Urine pH (5.0-8.0) Ur Specific [place] (1.015-1.025) Urine Protein (NEGATIVE) Urine Glucose (UA) (NEGATIVE) Urine Ketones (NEGATIVE) Urine Occult Blood (NEGATIVE) Urine Nitrate (NEGATIVE) Urine Bilirubin (NEGATIVE) Urine Urobilinogen (NORMAL) EU/DL Ur Leukocyte Esterase (NEGATIVE) Urinalysis Comment Urine Test (Negative) Salicylates < 1.0 L (2-20) MG/DL Urine Opiates Screen ng/mL Ur Oxycodone Screen ng/mL Urine Methadone Screen ng/mL Ur Propoxyphene Screen ng/mL Acetaminophen < 10 L (10-30) UG/ML Ur Barbiturates Screen ng/mL U Tricyclic Antidepress ng/mL Ur Phencyclidine Scrn ng/mL Ur Amphetamines Screen ng/mL U Methamphetamines Scrn ng/mL U Benzodiazepines Scrn ng/mL Urine Cocaine Screen ng/mL U Cannabinoids Screen ng/mL Ur Drug Screen Confirm Alcohol, Quantitative <10 (<10) MG/DL 03/23/17 03/23/17 03/23/17 Range/Units 18:28 18:37 18:37 WBC (4.5-11.0) T/MM3 RBC (4.00-5.20) M/MM3 Hgb (12-16) GM/DL Hct (36-46) % MCV (80-100) UM3 MCH (26-34) UUG MCHC (31-37) GM/DL RDW Std Deviation (36.9-50.2) FL Plt Count (130-400) T/MM3 MPV (9.4-12.4) UM3 Immature Gran % (Auto) (0.0-0.5) % Neut % (Auto) (33-66) % Lymph % (Auto) (23-45) % [place] % (Auto) (0-9.0) % Eos % (Auto) (0-4) % Baso % (Auto) (0-2) % Neut # (Auto) (1.8-7.7) T/MM3 Lymph # (Auto) (1-4.8) T/MM3 [place] # (Auto) (0-0.8) T/MM3 Eos # (Auto) (0-0.5) T/MM3 Baso # (Auto) (0-0.2) T/MM3 Abs Immat Gran (auto) (0.00-0.03) T/MM3 INR 0.98 L (0.99-1.21) APTT 29.1 (24-36) SEC Turbidity (0-20) Sodium (134-144) MEQ/L Potassium (3.6-5) MEQ/L Chloride (98-107) MEQ/L Carbon Dioxide (22-30) MEQ/L Anion Gap (5-15) MEQ/L BUN (7-17) MG/DL Creatinine (0.7-1.2) MG/DL GFR Calculation BUN/Creatinine Ratio (6-26) RATIO Glucose (65-110) MG/DL Calculated Osmolality (261-280) MOSM/KG Calcium (8.4-10.2) MG/DL Total Bilirubin (0.20-1.30) MG/DL Icterus Index (0-7) AST (14-36) U/L ALT (9-52) U/L Alkaline Phosphatase (38-126) U/L Total Protein (6.3-8.2) G/DL Albumin (3.5-5.0) G/DL Globulin (2.4-3.6) G/DL Albumin/Globulin Ratio (1.1-2.2) RATIO TSH (0.47-4.68) MIU/L Specimen Hemolysis (0-25) Ur Collection Type Urine, clean catch Urine Color Yellow (YELLOW) Urine Clarity Clear Urine pH 6.0 (5.0-8.0) Ur Specific [place] 1.015 (1.015-1.025) Urine Protein Negative (NEGATIVE) Urine Glucose (UA) Negative (NEGATIVE) Urine Ketones Trace A (NEGATIVE) Urine Occult Blood Negative (NEGATIVE) Urine Nitrate Negative (NEGATIVE) Urine Bilirubin Negative (NEGATIVE) Urine Urobilinogen 0.2 (NORMAL) EU/DL Ur Leukocyte Esterase Negative (NEGATIVE) Urinalysis Comment Microscopic not ind. Urine Test Negative (Negative) Salicylates (2-20) MG/DL Urine Opiates Screen ng/mL Ur Oxycodone Screen ng/mL Urine Methadone Screen ng/mL Ur Propoxyphene Screen ng/mL Acetaminophen (10-30) UG/ML Ur Barbiturates Screen ng/mL U Tricyclic Antidepress ng/mL Ur Phencyclidine Scrn ng/mL Ur Amphetamines Screen ng/mL U Methamphetamines Scrn ng/mL U Benzodiazepines Scrn ng/mL Urine Cocaine Screen ng/mL U Cannabinoids Screen ng/mL Ur Drug Screen Confirm Alcohol, Quantitative (<10) MG/DL 03/23/17 03/23/17 Range/Units 18:37 18:37 WBC (4.5-11.0) T/MM3 RBC (4.00-5.20) M/MM3 Hgb (12-16) GM/DL Hct (36-46) % MCV (80-100) UM3 MCH (26-34) UUG MCHC (31-37) GM/DL RDW Std Deviation (36.9-50.2) FL Plt Count (130-400) T/MM3 MPV (9.4-12.4) UM3 Immature Gran % (Auto) (0.0-0.5) % Neut % (Auto) (33-66) % Lymph % (Auto) (23-45) % [place] % (Auto) (0-9.0) % Eos % (Auto) (0-4) % Baso % (Auto) (0-2) % Neut # (Auto) (1.8-7.7) T/MM3 Lymph # (Auto) (1-4.8) T/MM3 [place] # (Auto) (0-0.8) T/MM3 Eos # (Auto) (0-0.5) T/MM3 Baso # (Auto) (0-0.2) T/MM3 Abs Immat Gran (auto) (0.00-0.03) T/MM3 INR (0.99-1.21) APTT (24-36) SEC Turbidity (0-20) Sodium (134-144) MEQ/L Potassium (3.6-5) MEQ/L Chloride (98-107) MEQ/L Carbon Dioxide (22-30) MEQ/L Anion Gap (5-15) MEQ/L BUN (7-17) MG/DL Creatinine (0.7-1.2) MG/DL GFR Calculation BUN/Creatinine Ratio (6-26) RATIO Glucose (65-110) MG/DL Calculated Osmolality (261-280) MOSM/KG Calcium (8.4-10.2) MG/DL Total Bilirubin (0.20-1.30) MG/DL Icterus Index (0-7) AST (14-36) U/L ALT (9-52) U/L Alkaline Phosphatase (38-126) U/L Total Protein (6.3-8.2) G/DL Albumin (3.5-5.0) G/DL Globulin (2.4-3.6) G/DL Albumin/Globulin Ratio (1.1-2.2) RATIO TSH (0.47-4.68) MIU/L Specimen Hemolysis (0-25) Ur Collection Type Urine Color (YELLOW) Urine Clarity Urine pH (5.0-8.0) Ur Specific [place] (1.015-1.025) Urine Protein (NEGATIVE) Urine Glucose (UA) (NEGATIVE) Urine Ketones (NEGATIVE) Urine Occult Blood (NEGATIVE) Urine Nitrate (NEGATIVE) Urine Bilirubin (NEGATIVE) Urine Urobilinogen (NORMAL) EU/DL Ur Leukocyte Esterase (NEGATIVE) Urinalysis Comment Urine Test (Negative) Salicylates (2-20) MG/DL Urine Opiates Screen Negative ng/mL Ur Oxycodone Screen Negative ng/mL Urine Methadone Screen Negative ng/mL Ur Propoxyphene Screen Negative ng/mL Acetaminophen (10-30) UG/ML Ur Barbiturates Screen Negative ng/mL U Tricyclic Antidepress Negative ng/mL Ur Phencyclidine Scrn Negative ng/mL Ur Amphetamines Screen Positive ng/mL U Methamphetamines Scrn Positive ng/mL U Benzodiazepines Scrn Negative ng/mL Urine Cocaine Screen Negative ng/mL U Cannabinoids Screen Negative ng/mL Ur Drug Screen Confirm Sent out Alcohol, Quantitative (<10) MG/DL <Joe Tesfaye - 03/23/17 18:32> - EKG Data EKG #1 EKG results narrative: Declined by patient who is currently voluntary. <Joe Tesfaye - 03/23/17 23:10> Disposition Clinical Impression: Suicidal ideation <Ed Clancy Q - 03/24/17 09:01> Disposition: 02 To [facility] <Ed Clancy - 03/24/17 09:01> Condition: Stable <Ed Clancy - 03/24/17 09:01> Time of Disposition: 23:00 <Joe Tesfaye 03/23/17 23:43> - Seen By: physician <Ed Clancy - 03/24/17 09:01> physician <Joe Tesfaye 03/23/17 18:30>
[2017-03-23] MEDS ORDERED: NS 1,000 ML IV ONE (20:08)
[2017-03-23] MEDS ORDERED: NICOTINE 21 MG PATCH TD ONE (21:12)
[2017-03-23] MEDS ORDERED: LORazepam 0.5 MG TABLET PO ONE (23:38)
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
[2017-03-24 10:57] VITALS: BMI 24.0
[2017-03-24] MEDS ORDERED: NS 1,000 ML IV ONE (11:00)
[2017-03-24 13:16] VITALS: PULSE 60
[2017-03-24 13:17] VITALS: BP 90/58; RESP 12; O2SAT 100
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
== END 2017-03-24 14:40 ==
LOC: CCU 17:53 → ED 17:53 → CCU 03-24 10:00
PROVIDERS: ADMIT Internal Medicine; ATTEND Internal Medicine